=== PATIENT | male | born 1975 | race Two or more races ===

== ENCOUNTER 2017-04-24 22:25 | Emergency (ER) | payer BC ==
[~2017-04-24] VITALS: Ht 162.6 cm; Wt 84.1 kg
[2017-04-24] MEDS ORDERED: SOD CHLORIDE 0.9% 1,000 ML IV STA (22:27)
[2017-04-24] MEDS ORDERED: HALOPERIDOL 5 MG INJ IM STA (22:27)
[2017-04-24] MEDS ORDERED: LORAZEPAM 2 MG INJ IM ONE (22:30)
[2017-04-24 22:31] VITALS: Ht 162.6 cm; Wt 84.1 kg
[2017-04-24 23:40] LABS: ABNORMAL IP MESSAGE 1; BASOPHIL # 0.1 10^3/ul (0.0-0.1); BASOPHILS % 0.5 % (0.0-2.0); HEMATOCRIT 49.9 % (42.0-52.0); HEMOGLOBIN 17.8 g/dl (14.0-18.0); LYMPHOCYTES # 1.7 10^3/ul (0.8-2.9); LYMPHOCYTES % 7.4 % (15.0-51.0); MEAN CORPUSCULAR HGB CONC 35.7 g/dl (32.0-37.0); MEAN CORPUSCULAR VOLUME 81.3 fl (82.0-101.0); MEAN PLATELET VOLUME 8.6 fl (7.4-10.4); MONOCYTE # 1.7 10^3/ul (0.3-0.9); MONOCYTES % 7.3 % (0.0-11.0); NEUTROPHILS % 84.2 % (39.0-77.0); PLATELET COUNT 374 10^3/UL (140-415); POSITIVE DIFF @See below; RED BLOOD COUNT 6.14 10^6/ul (4.70-6.10)
[2017-04-25 00:10] LABS: ALANINE AMINOTRANSFERASE 70 IU/L (13-69); ALBUMIN 4.7 g/dl (3.3-4.9); ALKALINE PHOSPHATASE 92 IU/L (42-121); ANION GAP 19 (8-16); ASPARTATE AMINO TRANSFERASE 168 IU/L (15-46); BILIRUBIN,INDIRECT 2.3 mg/dl (0-1.1); BILIRUBIN,TOTAL 2.3 mg/dl (0.2-1.3); BLOOD UREA NITROGEN 13 mg/dl (7-20); CALCIUM 9.1 mg/dl (8.4-10.2); CARBON DIOXIDE 21 mmol/L (21-31); CHLORIDE 102 mmol/L (97-110); CREATININE 1.09 mg/dl (0.61-1.24); ETHANOL < 10.0 mg/dl; GLUCOSE 114 mg/dl (70-220); POTASSIUM 3.2 mmol/L (3.5-5.1); SODIUM 139 mmol/L (135-144); TOTAL PROTEIN 8.3 g/dl (6.1-8.1)
--- NOTE | 2017-04-25 00:24 | ERA ---
ER Documentation Chief Complaint Date/Time DATE: 04/25/17 TIME: 00:21 Chief Complaint BIBA RA89 ALOC,suspected meth overdose HPI This is a 41-year-old male brought in via EMS with police escort after being found agitated running throughout the streets. The patient is extremely agitated. He admitted to EMS that he used methamphetamine. Patient is nonverbal and refuses to give a history here. Remainder of HPI is extremely limited. ROS Agitated Allergies Allergies: Coded Allergies: Unknown: Unable to obtain (Unverified , 04/24/17) PMhx/Soc Medical and Surgical Hx: Unable to obtain Smoking Status: Unknown if ever smoked FmHx Family History: No diabetes Physical Exam Vitals Vital Signs Date Time Temp Pulse Resp B/P Pulse Ox O2 Delivery O2 Flow Rate FiO2 04/25/17 02:13 98.0 101 17 123/71 97 04/25/17 01:58 98.0 109 17 128/73 97 04/25/17 01:43 98.0 105 17 133/70 97 04/25/17 01:28 98.1 107 18 130/73 97 04/25/17 01:13 98.1 115 18 121/73 97 04/25/17 00:58 98.1 109 20 128/70 95 04/25/17 00:43 98.1 109 20 121/73 95 04/25/17 00:28 98.1 110 27 118/71 99 04/25/17 00:13 98.1 115 27 122/70 99 04/24/17 23:58 98.1 112 25 128/72 99 04/24/17 23:43 97.6 115 17 131/71 97 04/24/17 23:28 97.6 109 17 137/74 97 04/24/17 23:13 97.6 115 17 133/70 97 04/24/17 22:58 97.6 119 17 143/75 99 04/24/17 22:43 97.6 115 22 134/71 99 04/24/17 22:31 97.0 96 18 149/73 99 04/24/17 22:28 97.6 104 19 131/76 99 Physical Exam General: Extremely agitated and diaphoretic, appears to be responding to internal stimuli Head: Normocephalic, atraumatic. Eyes: Pupils equally reactive, EOM intact ENT: Moist mucous membranes Neck: Supple, no lymphadenopathy Respiratory: Lungs clear bilaterally, no distress Cardiovascular: Tachycardia, no murmurs, rubs, or gallops Abdominal: Soft, non-tender, non-distended, no peritoneal signs : Deferred MSK: No edema, no unilateral swelling, 5/5 strength Neurologic: Poorly cooperative and agitated but moving all extremities Skin: No rash Psych: Acutely agitated Result Diagram: 04/24/17 2325 04/24/17 2325 Results 24 hrs Laboratory Tests Test 04/24/17 23:25 White Blood Count 23.010^3/ul Red Blood Count 6.1410^6/ul Hemoglobin 17.8g/dl Hematocrit 49.9% Mean Corpuscular Volume 81.3fl Mean Corpuscular Hemoglobin 29.0pg Mean Corpuscular Hemoglobin Concent 35.7g/dl Red Cell Distribution Width 13.0% Platelet Count 62037^3/UL Mean Platelet Volume 8.6fl Neutrophils % 84.2% Lymphocytes % 7.4% Monocytes % 7.3% Eosinophils % 0.0% Basophils % 0.5% Nucleated Red Blood Cells % 0.0/100WBC Neutrophils # (Manual) 1910^3/ul Lymphocytes # 1.710^3/ul Monocytes # 1.710^3/ul Eosinophils # 0.010^3/ul Basophils # 0.110^3/ul Nucleated Red Blood Cells # 0.010^3/ul Sodium Level 139mmol/L Potassium Level 3.2mmol/L Chloride Level 102mmol/L Carbon Dioxide Level 21mmol/L Anion Gap 19 Blood Urea Nitrogen 13mg/dl Creatinine 1.09mg/dl Glucose Level 114mg/dl Calcium Level 9.1mg/dl Total Bilirubin 2.3mg/dl Direct Bilirubin 0.00mg/dl Indirect Bilirubin 2.3mg/dl Aspartate Amino Transf (AST/SGOT) 168IU/L Alanine Aminotransferase (ALT/SGPT) 70IU/L Alkaline Phosphatase 92IU/L Total Protein 8.3g/dl Albumin 4.7g/dl Globulin 3.60g/dl Albumin/Globulin Ratio 1.30 Ethyl Alcohol Level < 10.0mg/dl Current Medications Medications (Trade) Dose Ordered Sig/Slim Route PRN Reason Start Time Stop Time Status Last Admin Dose Admin Sodium Chloride (NS) 1,000 ml @ 1,000 mls/hr Q1H STAT IV 04/24/17 22:27 04/24/17 23:26 DC 04/24/17 22:27 Haloperidol (Haldol) 5 mg ONCE STAT IM 04/24/17 22:27 04/24/17 22:29 DC 04/24/17 22:42 Lorazepam (Ativan) 2 mg ONCE ONCE IM 04/24/17 22:30 04/24/17 22:31 DC 04/24/17 22:42 Procedures/MDM EKG, MONITORS, & DIAGNOSTIC IMAGING: EKG: I reviewed and interpreted a 12-lead EKG. Rhythm: sinus tachycardia Ectopy: None Intervals: No abnormalities ST segments: No elevations or depressions T waves: No contiguous inversions Procedure: Restrains: Indication: Acute agitation and danger to self and medical staff Location: 4 point restraints to bilateral upper and lower extremities The patient was given verbal warnings that if the behavior continued the patient would require physical and/or chemical restraints. Despite verbal warnings the behavior continued and restraints were applied. The patient had a bedside reevaluation within 50 minutes of placement of restraints. Patient remained stable. LAB INTERPRETATION: Leukocytosis likely secondary to demargination and stress response MEDICAL DECISION MAKING: Patient's presentation is very consistent with acute agitation secondary to sympathomimetic ingestion. Patient may have underlying psychiatric illness. No report of suicidal ideation. Upon arrival the patient was acutely agitated and a danger to himself or others. He required restraints as documented above, Haldol and Ativan provided IM. The patient will be observed in the emergency room and allowed to clear. If the patient still has evidence of psychosis a telemetry medicine psychiatry consultation may be required. However this is more likely secondary to toxicologic process. ER COURSE: The patient does have leukocytosis but again given acute sympathomimetic use I believe this is more consistent with demargination rather than infectious process. No evidence of meningitis. I kept the patient and/or family informed of laboratory and diagnostic imaging results throughout the emergency room course. DISPOSITION PLAN: Pending sobriety and resolution of symptoms. The patient's is at the bedside and can take him home once he is cleared. The patient is still sleeping at this time. Observation Note: Indication: Acute methamphetamine intoxication Duration: Greater than 4 hours Family history: None The patient was observed with serial exams over the above timeframe. The patient continued to be well-appearing, and observation continued without complication. Departure Diagnosis: Primary Impression: Methamphetamine abuse Additional Impressions: Methamphetamine use Overdose of sympathomimetic agent Qualified Code: T44.901A - Overdose of sympathomimetic agent, accidental or unintentional, initial encounter Condition: LORA Urena MD Apr 25, 2017 00:23
[2017-04-25 10:59] VITALS: BP 145/63; PULSE 80; RESP 18; TEMP 97.3
== END 2017-04-25 12:24 | disposition home or self-care (01) ==
LOC: E/R 22:25
DX: F15.10 Other stimulant abuse, uncomplicated (principal); R40.2222 Coma scale, best verbal response, incomprehensible words, at arrival to emergency department; T44.901A Poisoning by unspecified drugs primarily affecting the autonomic nervous system, accidental (unintentional), initial encounter; R40.2142 Coma scale, eyes open, spontaneous, at arrival to emergency department
CPT/HCPCS: 36415; 80053; 80306; 80307; 85025; 93005; 96372; 99284; J1630; J2060; J7030